=== PATIENT | female | born 1945 | race Caucasian/White ===

== ENCOUNTER 2016-10-23 20:45 | Inpatient (IN) | payer MEDICARE, OTHER ==
[2016-10-23] MEDS ORDERED: SODIUM CHLORIDE 0.9% 1,000 ML ONE (21:27)
[2016-10-23 21:32] LABS: ABSOLUTE NEUTROPHIL COUNT 6.2 K/mm3 (1.8-7.7); BASO % 0.5 % (0.2-1.0); EOS % 0.4 % (0.9-2.9); HEMOGLOBIN 11.8 gm/l (12.0-16.0); IMM NEUT% 0.3 % (0-1); LYMPH # 0.7 (1.0-4.8); LYMPH % 9.5 % (15-45); MEAN CELL VOLUME 93.5 fl (81.0-99.0); MEAN CORPUSCULAR HEMOGLOBIN 28.3 pg (27.0-31.0); MEAN CORPUSCULAR HGB CONC 30.3 g/dl (33.0-37.0); MEAN PLATELET VOLUME 9.5 fl (7.4-10.4); MONO # 0.5 (0.0-0.8); MONO % 7.1 % (4-12); NEUT % 82.2 % (43-75); PLATELET COUNT 305 K/mm3 (130-400); RED CELL DISTRIBUTION WIDTH 12.5 % (11.5-14.5)
[2016-10-23 21:46] LABS: ALB/GLOB RATIO 1.6 (>1.0); ALBUMIN 4.2 gm/dL (3.5-5.7); CALCIUM 9.3 mg/dL (8.6-10.3); MAGNESIUM 2.2 mg/dL (1.9-2.7)
[2016-10-23 21:48] LABS: TROPONIN I < 0.01 ng/ml (0.0-0.06)
[2016-10-23 21:52] LABS: CKMB ISOENZYME 175.3 ng/ml (0.6-6.3)
[2016-10-23 22:42] LABS: SPECIFIC GRAVITY 1.025 (1.001-1.030); URINE BILIRUBIN NEGATIVE (NEGATIVE); URINE BLOOD 1+ (NEGATIVE); URINE GLUCOSE (UA) NEGATIVE (NEGATIVE); URINE LEUKOCYTE ESTERASE TRACE (NEGATIVE); URINE NITRITE NEGATIVE (NEGATIVE); URINE PROTEIN TRACE (NEGATIVE); URINE UROBILINOGEN NORMAL (0-1 mg/dl)
[2016-10-23 22:44] LABS: URINE APPEARANCE SL CLOUDY; URINE COLOR YELLOW
[2016-10-23 22:50] LABS: URINE AMORPHOUS SEDIMENT MODERATE; URINE BACTERIA 1+; URINE EPITHELIAL CELLS 0 /hpf; URINE RBC 0-2 /hpf
[2016-10-23] MEDS ORDERED: MENTHOL/CETYLPYRD 1 EACH LOZENGE PO PRN (23:00)
[2016-10-23] MEDS ORDERED: MAGNESIUM HYDROXIDE 30 ML UDCUP PO PRN (23:00)
[2016-10-23] MEDS ORDERED: BISACODYL 10 MG SUP PR PRN (23:00)
[2016-10-23] MEDS ORDERED: SODIUM CHLORIDE 0.9% 100 ML IV PRN (23:00)
[2016-10-23] MEDS ORDERED: ACETAMINOPHEN 325 MG TABLET PO PRN (23:00)
[2016-10-23] MEDS ORDERED: BISACODYL 5 MG TABLET.EC PO PRN (23:00)
[2016-10-23] MEDS ORDERED: BLISTEX LIPSTICK 1 EACH TP PRN (23:00)
[2016-10-23 23:29] VITALS: BMI 27.3
[2016-10-23] MEDS ORDERED: PUMP TUBING ONE (23:47)
[2016-10-24] MEDS ORDERED: IBUPROFEN PO PRN (00:04)
[2016-10-24] MEDS ORDERED: DIPHENHYDRAMINE HCL PO PRN (00:04)
[2016-10-24] MEDS ORDERED: [UNRECOGNIZED DRUG - OTHER] PO PRN (00:04)
[2016-10-24] MEDS ORDERED: MORPHINE SULFATE 30 MG TABLET PO PRN (00:04)
[2016-10-24] MEDS ORDERED: DIPHENHYDRAMINE HCL 25 MG CAPSULE PO PRN (00:25)
[2016-10-24] MEDS ORDERED: IBUPROFEN 200 MG TABLET PO PRN (00:25)
[2016-10-24] MEDS: SODIUM CHLORIDE 0.9% 1,000 ML IV SCH ×6 (00:45→21:13)
[2016-10-24 06:05] LABS: BASO % 0.4 % (0.2-1.0); EOS # 0.1 (0.0-0.5); EOS % 1.1 % (0.9-2.9); HEMATOCRIT 30.9 % (37.0-47.0); HEMOGLOBIN 9.5 gm/l (12.0-16.0); IMM NEUT% 0.2 % (0-1); MEAN CELL VOLUME 91.2 fl (81.0-99.0); MEAN CORPUSCULAR HGB CONC 30.7 g/dl (33.0-37.0); MEAN PLATELET VOLUME 9.8 fl (7.4-10.4); MONO # 0.5 (0.0-0.8); MONO % 11.4 % (4-12); NEUT % 65.9 % (43-75); PLATELET COUNT 243 K/mm3 (130-400); RED CELL DISTRIBUTION WIDTH 12.7 % (11.5-14.5)
[2016-10-24 06:20] LABS: CALCIUM 8.2 mg/dL (8.6-10.3)
--- NOTE | 2016-10-24 07:48 | CT ---
Exam: CT head without contrast COMPARISON: None INDICATION: Syncopal episode with ground-level fall. TECHNIQUE: CT examination of the head was obtained without contrast. FINDINGS: There is no acute intracranial hemorrhage. There is no abnormal intra or extra-axial fluid collection. Cortical allison-white matter differentiation is maintained and there is no mass effect or midline shift. Mild patchy deep white matter hypodensities are appreciated, most compatible with chronic small vessel ischemic changes. Ventricles are normal in size. There is no depressed skull fracture. Visualized paranasal sinuses and mastoid air cells are well aerated. IMPRESSION: No acute intracranial abnormality. Preliminary report transmitted to the emergency department from [facility] at 2212 hours 10/23/2016.
--- NOTE | 2016-10-24 07:53 | CT ---
Exam: CT cervical spine without contrast COMPARISON: None INDICATION: Syncopal episode with ground-level fall. TECHNIQUE: CT examination of the cervical spine was obtained without contrast. FINDINGS: Osteopenia. There is trace retrolisthesis of C4 on C5. Sagittal alignment is otherwise maintained. Atlantoaxial and atlantooccipital relationships are preserved. There is no prevertebral soft tissue swelling. No acute fracture is identified. There is multilevel degenerative disc disease from C4 through T1, mild to moderate severity. Neural foraminal narrowing is seen at C4-5 and C5-6 related to uncovertebral hypertrophy. Degenerative changes are also noted about the C1-2 articulation. Limited evaluation of the lung apices demonstrates no pneumothorax. Paravertebral soft tissues are unremarkable. A 1.6 cm hypodense nodule is noted within the mid to lower right thyroid. Thyroid gland is otherwise homogeneous. IMPRESSION: 1. Incidental 1.6 cm right thyroid nodule. Thyroid ultrasound is recommended for further evaluation. 2. No acute osseous abnormality in the cervical spine. 3. Chronic degenerative changes as above. Preliminary report transmitted to the emergency department from [facility] at 2212 hours 10/23/2016.
--- NOTE | 2016-10-24 07:58 | HP ---
Ingrid Oneill [id number] DATE OF ADMISSION: October 23, 2016 CHIEF COMPLAINT: Syncope. HISTORY OF PRESENT ILLNESS: The patient is a 71-year-old female with a history of hypertension, chronic pain due to cervical and lumbar spondylosis who was brought to the [facility] Emergency Department by private vehicle due to syncopal episode which occurred earlier this morning associated with persistent weakness. The patient reports this morning that she collapsed in her kitchen. She does not recall any prodromal symptoms, but woke up on the floor approximately 3 hours with cramping pain in her lower extremities. She reports that she was too weak to get up and passed out multiple times throughout the day. By 7:00 p.m. she was able to crawl around and eventually got a hold of her daughter round 10:00 at night who brought her into the hospital for further evaluation. Workup in the emergency department showed evidence of possible rhabdomyolysis with acute kidney injury. She was referred to the hospitalist service for admission. REVIEW OF SYSTEMS: Denies any recent fevers, chills, or malaise. She did feel a little bit tremulous last night. She denies any feelings of dizziness, vertigo, or feeling faint or lightheaded. She has had not recent upper respiratory symptoms. She denies complaints of cough, dyspnea, chest pain, shortness of breath, palpitations. She denies any recent problems with nausea, vomiting, diarrhea, constipation, or abdominal pain. She has chronic arthralgias associated with osteoarthritis and degenerative disc disease. She is on chronic pain medications, but denies any change in her pain medication usage. She denies any headaches. She reports no seizure activity or loss of bowel or bladder continence. She denies any burning on urination or urinary frequency. Review of systems is otherwise negative. She has recently traveled from [place] and flew in on Sunday, but has not had any lower extremity swelling or pain. PAST MEDICAL HISTORY: Significant for chronic essential hypertension. She has had history of obesity in the past, but is now status post gastric bypass and normal weight. Medical record indicates a history of mild aortic stenosis with an ejection fraction of 55%, but the date of the study was not noted in the record. She has had chronic pain and is on chronic opioid therapy managed by pain acute care registered nurse of [place]. She has advanced osteoarthritis, multiple sites. She has osteoporosis. She has varicose veins with some chronic lower extremity edema. She has had some scoliosis and some hyperlipidemia as well. PAST SURGICAL HISTORY: This includes a left knee replacement in October 2013, right total knee replacement in April 2014. She had a right hip replacement in 1998. She has had a tubal ligation in the past. She had a screening colonoscopy in July 2016. She has had multiple transluminal and transforaminal steroid injections. She had a gastric bypass in September 2007 and a cholecystectomy in November 2012. ALLERGIES: She has no known drug allergies. CURRENT MEDICATIONS: Consist of: 1. Fosamax 70 mg once a week. 2. Vitamin D3 1000 units daily. 3. Gabapentin 800 mg three times daily. 4. A chewable iron supplement with vitamin C one daily. 5. Ibuprofen PM two at bedtime as needed for sleep. 6. Calcium citrate with vitamin D 3 tablets once daily. 7. Morphine sulfate immediate release 30 mg every 4 hours as needed for pain. 8. Lopressor 25 mg twice daily. 9. Mobic 15 mg daily. 10. Vitamin B12 1000 mcg sublingual daily. 11. Lisinopril 1 tablet by mouth daily. 12. Hydrochlorothiazide 12.5 mg daily. 13. Fentanyl patch 25 mcg every 72 hours. 14. Multivitamin once daily. FAMILY HISTORY: Unremarkable. SOCIAL HISTORY: Patient is single, last year. She has never smoked. She drinks alcohol socially. She has three living children, one lives in [place] and is very supportive. Patient is living independently in a single level home and is retired and does not use any assistive devices. Her primary care provider is FRANCI Franco. PHYSICAL EXAMINATION: VITALS: Show a temperature of 98.8, pulse 75, blood pressure 117/69, respirations 13, oxygen saturation is 97% on room air. Body mass index is 27.3, weight is 67.7 kg. GENERAL: This is a elderly female in no acute distress. HEENT: Unremarkable. NECK: Supple without lymphadenopathy or thyromegaly. LUNGS: Clear to auscultation bilaterally. CARDIOVASCULAR: Reveals a regular rate and rhythm without a murmur. ABDOMEN: Soft, nontender, nondistended with positive bowel sounds. PELVIC: Deferred. RECTAL: Deferred. EXTREMITIES: Show trace lower extremity edema bilaterally with varicose veins visible in both lower extremities. Xiomara sign is negative. There is no redness or warmth in the lower extremities. Dorsal pedis pulses are 2+ at the feet bilaterally and equal. NEUROLOGIC: Nonfocal. She is alert and oriented x3. DIAGNOSTICS: No diagnostic imaging studies are available. A 12-lead EKG shows sinus rhythm without acute ST or T-wave changes. LABORATORY STUDIES: CBC shows a white count of 7.4, hemoglobin 11.8, platelet count of 305,000, lactate is normal at 1.5. Chemistry profile shows sodium of 136, potassium 4.8, BUN 39, creatinine 1.9, glucose 143, magnesium 2.2. Liver function tests are normal. Total CPK is 1711. CK-MB is 175.3. Troponin I is less than 0.01. Albumin is 4.2. Globulin 2.7. Urine is concentrated with specific gravity of 1.025, negative ketones, negative glucose, trace protein, 1+ blood, nitrite negative, leukocyte esterase trace, 0-2 red cells per high power field, 2-5 white cells per high power field, 1+ bacteria. ASSESSMENT AND PLAN: The patient has had a syncopal episode, weakness, as well as evidence of acute kidney injury with a creatinine of 1.9, last creatinine was 0.8. She also meets criteria for rhabdomyolysis. Suspect this may have occurred because arrhythmia or possibly due to hypotension related to too much blood pressure medicine, possibly opioid intoxication. She is going to be monitored overnight and hydrated with aggressive hydration. We will monitor her renal function closely. We will get physical therapy and occupational therapy to evaluate and treat the patient. She will be placed on a cardiac exercise physiologist. She has chronic essential hypertension. Her blood pressure is actually on the low side today. Will hold her medicines as tolerated. Metoprolol will be given if her systolic blood pressure is above 140. She has chronic pain and is on chronic opioid therapy, this is managed by the pain clinic in [place], we will defer to them. We will continue her medicines as needed here in the med/surg unit. She has chronic pain with lumbar and cervical disc disease and spondylosis as well as generalized osteoarthritis. Because of her history of recent travel may consider CT angiogram if her renal function improves, but the given the lack of hypoxia, tachycardia, or chest pain I think the likelihood that a pulmonary embolism that has caused these symptoms is low I may get a D-dimer although, false positives are highly likely. At this point, I think she will possibly go home tomorrow if she is improving and passes therapy evaluations. If not and she stays a second night then I think she meets criteria for admission, but at this point due to the anticipated possible discharge tomorrow she will be observation status. Further treatment and recommendations will depend on her hospital course. JOB: [id number] CC: FRANCI Franco
[2016-10-24] MEDS ORDERED: FENTANYL PATCH 25 MCG/72 HR 1 EACH TD SCH (09:00)
[2016-10-24] MEDS: MULTIVITAMINS 1 TAB TABLET PO SCH (09:31)
[2016-10-24] MEDS: DOCUSATE SODIUM 100 MG CAPSULE PO SCH ×2 (09:31→20:21)
[2016-10-24] MEDS: VITAMIN D3 1,000 UNITS CAP.LIQ PO SCH (09:32)
[2016-10-24] MEDS: GABAPENTIN 800 MG TABLET PO SCH ×3 (09:32→21:13)
[2016-10-24] MEDS: CYANOCOBALAMIN (VITAMIN B-12) 250 MCG TABLET PO SCH (09:32)
[2016-10-24] MEDS: METOPROLOL TARTRATE 50 MG TABLET PO SCH ×2 (09:33→20:21)
[2016-10-24] MEDS: MELOXICAM 15 MG TABLET PO SCH (09:33)
--- NOTE | 2016-10-24 10:39 | PDOC43 ---
- Subjective Chief Complaint: syncope/weakness Subjective: Denies Chest Pain, Denies Vomiting, Denies Fever - Objective Vital Signs Temperature 98.2 F 10/24/16 07:56 Pulse Rate 69 10/24/16 08:38 Respiratory Rate 14 10/24/16 08:38 Blood Pressure 108/48 10/24/16 07:56 O2 Saturation by Pulse Oximetry 93 10/24/16 08:38 Oxygen Delivery Method Nasal Cannula Oxygen Flow Rate 1.5 General: Alert, Oriented x3, Cooperative, No Acute Distress HEENT: Mucous membr. moist/pink Lungs: Clear to Auscultation Bilaterally Cardiovascular: Regular Rate and Rhythm Abdomen: Soft, Normal Bowel Sounds, Non-Distended, No Tenderness Extremities: No Edema Skin: Warm, Dry, Intact Current Medications: Current meds reviewed in EMR. - Problems: Assessment/Plan (1) Syncope Qualifiers: Syncope type: unspecified Qualifier Code: (R55) Syncope and collapse Status: Acute Assessment/Plan: Associated with weakness and persistently low BP despite holding of meds, etiology unclear, likely multifactorial due to opioids and excessive lowering of BP-monitor on tele (2) Rhabdomyolysis Qualifiers: Rhabdomyolysis type: traumatic Encounter type: initial encounter Qualifier Code: (T79.6XXA) Traumatic ischemia of muscle, initial encounter Status: Acute Assessment/Plan: due to prolonged immobilization, Cr improving, but CPK rising despite hydration- cont. aggressive hydration and follow (3) KEKE (acute kidney injury) Status: Acute Assessment/Plan: due to rhabdomyolsis, Cr improving from 1.9 to 1.5 (4) Chronic pain disorder Status: Acute Assessment/Plan: on chronic opioids followed by pain clinic in [place] (5) Hypertension Qualifiers: Hypertension type: essential hypertension Qualifier Code: (I10) Essential (primary) hypertension Status: Acute Assessment/Plan: usually on 3 meds but BP low-holding meds (6) Varicose veins of both legs with edema Status: Chronic Assessment/Plan: no redness or calve pain VTE Prophylaxis: Lovenox Disposition: likely home in am
[2016-10-24] MEDS ORDERED: ENOXAPARIN SODIUM 40 MG/0.4 ML SYRINGE SUB-Q SCH ×2 (10:45)
[2016-10-25] MEDS: SODIUM CHLORIDE 0.9% 1,000 ML IV SCH (04:36)
[2016-10-25 08:44] LABS: CALCIUM 8.1 mg/dL (8.6-10.3)
[2016-10-25 09:37] VITALS: BP 171/78
[2016-10-25] MEDS: MULTIVITAMINS 1 TAB TABLET PO SCH (10:06)
[2016-10-25] MEDS: CYANOCOBALAMIN (VITAMIN B-12) 250 MCG TABLET PO SCH (10:06)
[2016-10-25] MEDS: VITAMIN D3 1,000 UNITS CAP.LIQ PO SCH (10:06)
[2016-10-25] MEDS: METOPROLOL TARTRATE 50 MG TABLET PO SCH (10:07)
[2016-10-25] MEDS: MELOXICAM 15 MG TABLET PO SCH (10:07)
[2016-10-25] MEDS: GABAPENTIN 800 MG TABLET PO SCH (10:07)
[2016-10-25] MEDS: DOCUSATE SODIUM 100 MG CAPSULE PO SCH (10:07)
[2016-10-25] MEDS ORDERED: HYDROCHLOROTHIAZIDE 12.5 MG CAP PO SCH (10:15)
[2016-10-25] MEDS ORDERED: LISINOPRIL 20 MG TABLET PO SCH (10:15)
--- NOTE | 2016-10-25 12:06 | DS ---
Ingrid Oneill [id number] DATE OF ADMISSION: October 23, 2016. DATE OF DISCHARGE: October 25, 2016. DISCHARGE DIAGNOSES: 1. Syncope. 2. Rhabdomyolysis with acute kidney injury. 3. Generalized weakness. 4. Hypotension with history of chronic essential hypertension. 5. Patient also had bradycardia during her stay with heart rates into the 40's. 6. History of chronic pain due to lumbar and cervical spondylosis on chronic opioid therapy. TO SUMMARIZE THE ADMISSION AND HOSPITAL COURSE: The patient is a 71-year-old female brought in after a syncopal episode occurred followed by a prolonged period of embolization at home due to severe weakness. She was on the floor for 8 to 12 hours before she was evaluated. On evaluation in the emergency department her CPK levels were elevated at 1711 associated with acute kidney injury with a creatinine of 1.9. Her cardiac enzymes were negative. She was extremely weak in the emergency department and was referred to the hospitalist service for hydration. On telemetry during her period of monitoring her blood pressure medications were held due to low blood pressures initially as low as 104/44, but by the day of discharge her blood pressures were back up to 140's to 170's systolic, however, she had some bradycardia on the heart monitor with heart rates as low as 47 beats per minute even after being off her beta malorie for over 24 hours. Based on that, her beta malorie was held and further monitoring was recommended. Her acute kidney injury improved with hydration such that her creatinine was back to normal at 0.9 on the day of discharge. CPK levels peaked to 2148 but were trending downward to 1194 on the day of discharge. She is felt to be medically stable for discharge on October 25. PHYSICAL EXAMINATION: VITALS: At discharge showed a temperature of 97.6, pulse 58, blood pressure 171/78, respirations 16, oxygen saturation 97% on room air. Body mass index 27.9, weight is 69.1 kg. GENERAL: This is a well developed, well nourished female in no acute distress. HEENT: Unremarkable. NECK: Supple without lymphadenopathy or thyromegaly. LUNGS: Clear to auscultation bilaterally. CARDIOVASCULAR: Reveals regular bradycardia without a murmur. ABDOMEN: Soft, nontender, nondistended with positive bowel sounds. EXTREMITIES: Lower extremities show trace to 1+ pitting edema associated with varicose veins in both lower extremities. No erythema. No skin changes. No calf tenderness. LABORATORY STUDIES: On the day of discharge chemistry profile showed a sodium of 142, potassium 4.1, BUN 17, creatinine 0.9. DISPOSITION: Home. DISCHARGE CONDITION: Good. DISCHARGE MEDICATIONS: She is instructed to discontinue her metoprolol and will resume her previous home medications which include: 1. Fosamax 70 mg once a week. 2. Vitamin D3 1000 units daily. 3. Gabapentin 800 mg three times daily. 4. Chewable iron tablet once daily. 5. Ibuprofen PM two at bedtime as needed for insomnia. 6. Calcium with vitamin D three tablets daily. 7. Morphine sulfate immediate release 30 mg every four hours as needed for pain. She is limited to four a day. 8. Mobic 15 mg daily. 9. Vitamin B12 1000 mcg sublingual daily. 10. Lisinopril 40 mg daily. 11. Hydrochlorothiazide 12.5 mg daily. 12. Fentanyl patch 25 mcg every 3 days. 13. Multivitamin once daily. Arrangements were made for a 30 day event monitor to be started after discharge, results to be sent to [facility]. Follow up has been scheduled with FRANCI Franco on November 02 at 8:30 and recommend consideration of a follow up basic metabolic panel to recheck her creatinine at that time and she will need follow up of her event monitor and her blood pressure. JOB: [id number] CC: FRANCI Franco
== END 2016-10-25 11:15 | disposition home or self-care (01) | DRG 565 ==
LOC: ED 20:45 → MS 22:24 → ICU 22:24 → OBSVTOIN 10-24 07:41 → MS 10-24 18:30
PROVIDERS: ADMIT Family Medicine; ATTEND Family Medicine
DX: T79.6XXA Traumatic ischemia of muscle, initial encounter (principal); N17.9 Acute kidney failure, unspecified; I95.9 Hypotension, unspecified; I10 Essential (primary) hypertension; R00.1 Bradycardia, unspecified; M47.816 Spondylosis without myelopathy or radiculopathy, lumbar region; M47.812 Spondylosis without myelopathy or radiculopathy, cervical region; I83.893 Varicose veins of bilateral lower extremities with other complications; E04.1 Nontoxic single thyroid nodule; M19.90 Unspecified osteoarthritis, unspecified site

== ENCOUNTER 2017-01-15 09:27 | Day surgery (SDC) | payer MEDICARE, OTHER ==
[~2017-01-15 09:27] MED LIST: LACTATED RINGERS 1,000 ML IV SCH
[2017-01-15] MEDS ORDERED: LIDOCAINE 2% (PRES FREE) 5 ML VIAL ONE (10:51)
[2017-01-15] MEDS ORDERED: PROPOFOL 20 ML IV ONE (10:51)
[2017-01-15 15:51] LABS: HELICOBACTER PYLORII DETECTION NEGATIVE (NEGATIVE)
--- NOTE | 2017-01-17 09:48 | SURGPATH ---
[facility] [address] [place] [id number] Patient Name: REBECA OSHEA MR#: [id number] : 1945 Gender: F Specimen #: [id number] Collected: 01/15/2017 Received: 01/16/2017 Reported: 01/17/2017 Submitting Phys: BRADEN FRANKLIN Copy To Phys: [facility] Clinical History / Pre-Operative Diagnosis: IRON DEFICIENCY ANEMIA; HEME OCCULT + STOOL; HISTORY OF GASTRIC BARIATRIC SURGERY; RULE OUT GIARDIA, CELIAC SPRUE AND ALKALINE REFLUX GASTRITIS Specimen Source / Surgical Procedure Performed: #1-DUODENAL BIOPSY; #2-STOMACH BIOPSY Interpretation: 1. DUODENUM, BIOPSY: - NO PATHOLOGIC ABNORMALITIES 2. GASTRIC BIOPSY: - NO PATHOLOGIC ABNORMALITIES Electronically Signed Out Darrin Acevedo M.D. Gross Description: #1 The specimen is received in a formalin filled container labeled with the patient's name and "duodenal biopsy". Two allison-grace biopsies are each 0.5 cm. Totally embedded in cassette #1. #2 The specimen is received in a formalin filled container labeled with the patient's name and "stomach biopsy". Two allison-grace biopsies are 0.2 and 0.5 cm. Totally embedded in cassette #2. Viki Null Microscopic Description: 1. The sections show fragments of small bowel mucosa exhibiting a normal architectural pattern without evidence of villous blunting. There are no inflammatory or neoplastic features and there are no microorganisms identified. 2. The sections show fragments of gastric mucosa exhibiting a normal architectural pattern. There are no inflammatory or neoplastic features and there are no Helicobacter-like organisms identified. 1: [id number] 2: 39457 D50.8
== END 2017-01-15 12:13 | disposition home or self-care (01) ==
LOC: SDC 09:27
PROVIDERS: ATTEND Internal Medicine Gastroenterology
PROC: 0DB98ZX Excision of Duodenum, Via Natural or Artificial Opening Endoscopic, Diagnostic (ICD-10-PCS; principal; 2017-01-15)
PROC: 0DB68ZX Excision of Stomach, Via Natural or Artificial Opening Endoscopic, Diagnostic (ICD-10-PCS; 2017-01-15)
DX: D50.9 Iron deficiency anemia, unspecified (principal); K29.60 Other gastritis without bleeding; R19.5 Other fecal abnormalities; Z98.84 Bariatric surgery status; M79.1 Myalgia; G89.29 Other chronic pain; Z79.891 Long term (current) use of opiate analgesic; M81.0 Age-related osteoporosis without current pathological fracture; I10 Essential (primary) hypertension